=== PATIENT | male | born 1985 | race Caucasian/White ===

== ENCOUNTER 2016-10-23 03:11 | Emergency (ER) | payer SELFPAY ==
[~2016-10-23] VITALS: Ht 172.7 cm; Wt 64.0 kg
[2016-10-23] MEDS ORDERED: ACETAMINOPHEN 325MG TABLET PO ONE (07:00)
[2016-10-23 08:28] VITALS: BP 147/88
== END 2016-10-23 08:48 | disposition home or self-care (01) ==
LOC: ER 07:32
DX: M79.661 Pain in right lower leg (principal); R03.0 Elevated blood-pressure reading, without diagnosis of hypertension
CPT/HCPCS: 93970; 99284